=== PATIENT | female | born 1980 | race Caucasian/White ===

== ENCOUNTER 2018-04-15 08:51 | Emergency (ER) | payer MEDICAID ==
[~2018-04-15] VITALS: Ht 167.6 cm; Wt 86.8 kg
[~2018-04-15 08:51] MED LIST: CETI10CA PO; CITA40TA12 PO; HYDR-3241 PO; LABE200T6 PO; LITHIUM PO; METH500T7 PO; NORG1TAB26 PO; SERT50TA PO
[2018-04-15 08:55] VITALS: BP 145/85
--- NOTE | 2018-04-15 10:15 | NUR ---
CONTACT WITH PT. PT SITTING ON CHAIR DRESSED. REVIEWED DC INSTRUCTIONS WITH PT. DISCUSSED RX OF ROBAXIN AND CEPHALEXIN. PT ASKING ABOUT PAIN MEDICATIONS. PT STATES, "SHE SAID SHE WAS GOING TO GIVE ME SOME" DISCUSSED WITH STEFAN BRAR. PT TO TAKE IBUPROFEN. DISCUSSED WITH PT. PT RAISING VOICE "THAT IS NOT WHAT IS DISCUSSED. I'M NOT TRYING TO BE DIFFICULT. I JUST WANT SOME PAIN RELIEF. AGAIN DISCUSSED WITH WITH PA. AVILES AT BEDSIDE TO DISCUSS WITH PT. PT INSISTANT ON MEDICATIONS OTHER THAN ROBAXIN AND OTC IBUPROFEN. PT PROFILE LOOKED UP BY PA. PT UPSET THAT "ALL THE DRUG SEEKERS RUINED FOR EVERYONE ELSE. SOME ONE WITH LEGIMATE PAIN CANT GET ANY HELP" PT SIGNED DC PAPERS. LEFT AMB, GAIT STEADY.
== END 2018-04-15 10:57 | disposition home or self-care (01) ==
LOC: ED 10:51
DX: S39.012A Strain of muscle, fascia and tendon of lower back, initial encounter (principal); G89.11 Acute pain due to trauma; L03.011 Cellulitis of right finger; Z87.891 Personal history of nicotine dependence; W01.0XXA Fall on same level from slipping, tripping and stumbling without subsequent striking against object, initial encounter; Y93.29 Activity, other involving ice and snow; Y92.89 Other specified places as the place of occurrence of the external cause; Y99.8 Other external cause status
CPT/HCPCS: 72110; 72220; 99283